=== PATIENT | female | born 1995 | race Asian ===

== ENCOUNTER 2022-07-11 11:34 | Emergency (ER) | payer SELFPAY ==
[~2022-07-11] VITALS: Ht 157.5 cm; Wt 83.9 kg
[2022-07-11 11:57] VITALS: BP_SYST 100
[2022-07-11] MEDS ORDERED: TRAM50TA2 PO (13:26)
[2022-07-11] MEDS ORDERED: NAPR-688 PO (13:26)
[2022-07-11 13:32] VITALS: BP_SYST 100
== END 2022-07-11 13:32 | disposition home or self-care (01) ==
LOC: SED 11:34
DX: S43.51XA Sprain of right acromioclavicular joint, initial encounter (principal); Z79.899 Other long term (current) drug therapy; W23.1XXA Caught, crushed, jammed, or pinched between stationary objects, initial encounter; Y93.89 Activity, other specified; Y92.89 Other specified places as the place of occurrence of the external cause; Y99.8 Other external cause status
CPT/HCPCS: 73030; 99283